=== PATIENT | male | born 1975 | race Two or more races ===

== ENCOUNTER 2017-05-07 09:50 | Emergency (ER) | payer MEDICAID ==
[2017-05-07] MEDS ORDERED: KETOROLAC TROMETH 60MG/2ML VIAL IM ONE (13:15)
[2017-05-07 13:20] VITALS: BP 119/75
== END 2017-05-07 13:31 | disposition home or self-care (01) ==
LOC: ER 09:50
DX: G89.29 Other chronic pain (principal); M54.9 Dorsalgia, unspecified
CPT/HCPCS: 72100; 96372; 99284; J1885